=== PATIENT | female | born 1970 | race Caucasian/White ===

== ENCOUNTER 2016-06-25 16:57 | Inpatient (IN) ==
[2016-06-25] MEDS ORDERED: NS 2,400 ML IV ONE (17:42)
[2016-06-25] MEDS ORDERED: ROCEPHIN 1 GM/NS 1 GM/50 ML IVPB IV ONE (17:43)
[2016-06-25 17:53] LABS: BE 7.2 mmoll (-3.0-3.0); BLOOD TYPE ARTERIAL; DRAW SITE R RADIAL; METHB 1.2 % (0.0-1.5); O2(CT) 15.6 mL/dL (15.0-23.0); PO2(98.6) 51 mmHg (60-100); SAMPLE BLOOD; SAO2 90.6 % (95.0-100.0); pH(98.6) 7.42 (7.35-7.45)
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
--- NOTE | 2016-06-25 17:57 | EKG Report ---
Test Performed on : 06/25/2016 5:44:53 PM Test Reason : CP Blood Pressure : / mmHG Vent. Rate : 090 BPM Atrial Rate : 090 BPM P-R Int : 124 ms QRS Dur : 118 ms QT Int : 382 ms P-R-T Axes : 069 108 075 degrees QTc Int : 467 ms Normal sinus rhythm. Rightward axis Incomplete right bundle branch block Nonspecific T wave abnormality Prolonged QT Abnormal ECG When compared with ECG of 30-MAY-2016 09:09, Left anterior fascicular block is no longer present Unconfirmed Result
[2016-06-25 17:59] LABS: BASO% 0.2 % (0.0-0.8); EOS# 0.02 X1000 (0.0-0.7); EOS% 0.2 % (0.0-10.0); HEMATOCRIT 39.6 % (37.0-47.0); IMM GRAN# 0.49 X1000 (0.0-0.04); IMM GRAN% 3.8 % (0.0-0.5); LYMPH% 12.5 % (20.5-51.1); MANUAL DIFF NEEDED? NO; MCH 30.5 PG (27-31); MCHC 32.8 g/dL (33-37); MONO# 0.37 X1000 (0.11-0.59); MONO% 2.9 % (1.7-9.3); MPV 10.3 FL (7.4-10.4); NEUT% 80.4 % (42.2-75.2); PLT 179 X1000 (130-400); RBC 4.26 XMIL (4.2-5.4)
[2016-06-25 18:00] LABS: ALLEN TEST YES; MODALITY CANNULA
[2016-06-25 18:01] LABS: PCO2(98.6) 51 mmHg (35-45)
[2016-06-25 18:22] LABS: ALBUMIN 3.2 g/dL (3.5-5.0); CALCIUM 8.6 mg/dL (8.8-10.2); POTASSIUM 3.2 mmol/L (3.5-5.1); TOTAL BILIRUBIN 0.5 mg/dL (0.20-1.00); TOTAL PROTEIN 6.7 g/dL (6.3-8.3)
[2016-06-25] MEDS ORDERED: ZITHROMAX 500 MG/NS 500 MG/250 ML IVPB IV ONE ×2 (18:41→21:00)
[2016-06-25 18:42] LABS: CK INDEX 1.2 (0.0-2.5); CK-MB 7.63 ng/mL (0.0-5.0)
[2016-06-25] MEDS ORDERED: ZOFRAN IV PRN (18:49)
[2016-06-25] MEDS ORDERED: NS 1,000 ML IV ONE (18:49)
[2016-06-25] MEDS ORDERED: XANAX PO SCH (21:00)
[2016-06-26] MEDS: TYLENOL PO PRN (02:52)
[2016-06-26 06:50] LABS: BASO% 0.1 % (0.0-0.8); EOS# 0.03 X1000 (0.0-0.7); EOS% 0.3 % (0.0-10.0); HEMATOCRIT 33.4 % (37.0-47.0); HEMOGLOBIN 10.5 g/dL (12.0-16.0); IMM GRAN# 0.04 X1000 (0.0-0.04); IMM GRAN% 0.4 % (0.0-0.5); LYMPH# 1.17 X1000 (1.2-3.4); LYMPH% 13.1 % (20.5-51.1); MANUAL DIFF NEEDED? YES; MCHC 31.4 g/dL (33-37); MCV 95.4 FL (81-99); MONO# 0.29 X1000 (0.11-0.59); MONO% 3.2 % (1.7-9.3); MPV 10.5 FL (7.4-10.4); NEUT% 82.9 % (42.2-75.2); PLT 141 X1000 (130-400)
[2016-06-26 07:15] LABS: AGAP 9; BUN 16 mg/dL (8-22); CALCIUM 7.8 mg/dL (8.8-10.2); CHLORIDE 103 mmol/L (98-107); COSMO 276; POTASSIUM 3.6 mmol/L (3.5-5.1); SODIUM 138 mmol/L (136-145); TCO2 27 mmol/L (25-35)
[2016-06-26 07:22] LABS: BANDS 11 % (0-1); LYMPHS 15 % (21-51); MONO 5 % (1-9)
[2016-06-26 07:23] LABS: EOS 1 % (1-10)
[2016-06-26 08:05] LABS: URINE SOURCE CLEAN CATCH
[2016-06-26 08:18] LABS: BILIRUBIN URINE NEGATIVE (NEGATIVE); BLOOD URINE NEGATIVE (NEGATIVE); CLARITY CLEAR (CLEAR); COLOR AMBER; GLUCOSE URINE NEGATIVE (NEGATIVE); LEUKOCYTES URINE 1+ (NEGATIVE); NITRITE URINE NEGATIVE (NEGATIVE); PH URINE 6.5; PROTEIN URINE TRACE mg/dL (NEGATIVE); URINE MICROSCOPIC NEEDED? YES
[2016-06-26 08:19] LABS: URINE EPITHELIAL CELLS >10 /HPF (<10); UROBILINOGEN URINE 4+(12 mg/dL)
--- NOTE | 2016-06-26 08:30 | Diag Imaging Result Document ---
PROCEDURE NAME: ANGIOGRAM/PULMONARY ARTERIES - 06/25/2016 CTA CHEST: COMPARISON: None available. FINDINGS: There is no evidence of pulmonary embolism. There is no evidence of thoracic aortic dissection or aneurysm. There is significant mediastinal and hilar lymphadenopathy. For reference, there is a prominent lymph node in the region of the AP window toward the left that measures up to 2.9 x 1.6 cm axially. There is extensive airspace infiltrate that is seen throughout the left lung and much milder airspace infiltrate in the right upper lobe as well as the right lower lobe at the base. There is probably also a component of atelectasis at both lung bases. There are no pleural fluid collections and no pneumothorax. IMPRESSION: 1. Extensive airspace infiltrate throughout the left lung and much milder patchy infiltrate on the right as described suggesting likely pneumonia. 2. Mediastinal and hilar lymphadenopathy as described. This is probably reactive lymphadenopathy related to the infiltrates. Please correlate clinically. 3. No evidence of pulmonary embolism.
--- NOTE | 2016-06-26 08:53 | Diag Imaging Result Document ---
PROCEDURE NAME: CHEST-2 VIEWS - 06/25/2016 PA AND LATERAL RADIOGRAPH OF THE CHEST: COMPARISON: 05/30/2016. FINDINGS: There is diffuse consolidation throughout the left lung that is worst at the lower lung zone and much milder patchy infiltrate involving the right lower lung zone. This suggests pneumonia. No definite pleural fluid collection is identified. Cardiac silhouette and central vasculature are grossly unremarkable. IMPRESSION: Bilateral infiltrates, much worse on the left.
[2016-06-26] MEDS ORDERED: SOLU-MEDROL IV ONE (09:02)
[2016-06-26] MEDS: XANAX PO SCH ×3 (09:41→20:56)
[2016-06-26] MEDS: METHADONE PO SCH (09:41)
[2016-06-26] MEDS: NS 1,000 ML IV SCH ×2 (09:43→21:23)
[2016-06-26 09:48] LABS: CK INDEX 1.3 (0.0-2.5); CK-MB 3.98 ng/mL (0.0-5.0)
[2016-06-26] MEDS: DUONEB (A & A) INH SCH ×4 (11:14→22:35)
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
[2016-06-26] MEDS: ROCEPHIN 1 GM/NS 1 GM/50 ML IVPB IV SCH (17:27)
[2016-06-26] MEDS: SOLU-MEDROL IV SCH (17:28)
[2016-06-26] MEDS: ZITHROMAX 500 MG/NS 500 MG/250 ML IVPB IV SCH (20:56)
[2016-06-27] MEDS: SOLU-MEDROL IV SCH ×3 (01:50→20:12)
[2016-06-27] MEDS: DUONEB (A & A) INH SCH ×5 (03:10→20:30)
[2016-06-27] MEDS: NS 1,000 ML IV SCH ×2 (04:30→11:07)
[2016-06-27] MEDS: TYLENOL PO PRN (05:00)
[2016-06-27 07:08] LABS: BASO% 0.1 % (0.0-0.8); HEMATOCRIT 33.6 % (37.0-47.0); HEMOGLOBIN 10.8 g/dL (12.0-16.0); IMM GRAN# 0.04 X1000 (0.0-0.04); IMM GRAN% 0.6 % (0.0-0.5); LYMPH# 0.71 X1000 (1.2-3.4); LYMPH% 9.9 % (20.5-51.1); MANUAL DIFF NEEDED? YES; MCH 30.4 PG (27-31); MCHC 32.1 g/dL (33-37); MCV 94.6 FL (81-99); MONO# 0.18 X1000 (0.11-0.59); MONO% 2.5 % (1.7-9.3); MPV 10.2 FL (7.4-10.4); NEUT% 86.9 % (42.2-75.2); PLT 171 X1000 (130-400); RBC 3.55 XMIL (4.2-5.4)
[2016-06-27 07:46] LABS: AGAP 10; BUN 10 mg/dL (8-22); CALCIUM 8.3 mg/dL (8.8-10.2); CHLORIDE 106 mmol/L (98-107); COSMO 282; POTASSIUM 4.1 mmol/L (3.5-5.1); SODIUM 141 mmol/L (136-145); TCO2 26 mmol/L (25-35)
[2016-06-27 08:51] LABS: LYMPHS 7 % (21-51); MONO 4 % (1-9)
[2016-06-27] MEDS: METHADONE PO SCH (09:10)
[2016-06-27] MEDS: XANAX PO SCH ×3 (09:10→20:12)
[2016-06-27] MEDS ORDERED: XOPENEX NEB INH PRN (10:31)
[2016-06-27] MEDS: MUCOMYST 20% INH ONE ×2 (10:50→16:43)
[2016-06-27] MEDS ORDERED: MUCOMYST 20% ONE (11:00)
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
[2016-06-27] MEDS: ROCEPHIN 1 GM/NS 1 GM/50 ML IVPB IV SCH (17:26)
[2016-06-27] MEDS: ZITHROMAX 500 MG/NS 500 MG/250 ML IVPB IV SCH (20:12)
[2016-06-28] MEDS: DUONEB (A & A) INH SCH ×7 (00:09→23:29)
[2016-06-28] MEDS: NS 1,000 ML IV SCH (02:55)
[2016-06-28 08:04] LABS: MANUAL DIFF NEEDED? NO
[2016-06-28 08:35] LABS: BASO% 0.6 % (0.0-0.8); HEMATOCRIT 35.8 % (37.0-47.0); HEMOGLOBIN 11.5 g/dL (12.0-16.0); IMM GRAN# 0.14 X1000 (0.0-0.04); IMM GRAN% 1.7 % (0.0-0.5); LYMPH# 1.16 X1000 (1.2-3.4); LYMPH% 14.1 % (20.5-51.1); MCH 30.6 PG (27-31); MCHC 32.1 g/dL (33-37); MCV 95.2 FL (81-99); MONO# 0.44 X1000 (0.11-0.59); MONO% 5.3 % (1.7-9.3); MPV 9.9 FL (7.4-10.4); NEUT% 78.3 % (42.2-75.2); PLT 191 X1000 (130-400); RBC 3.76 XMIL (4.2-5.4)
[2016-06-28] MEDS: XANAX PO SCH ×3 (08:36→20:12)
[2016-06-28] MEDS: SOLU-MEDROL IV SCH ×2 (08:36→20:12)
[2016-06-28] MEDS: METHADONE PO SCH (08:37)
[2016-06-28 08:50] LABS: AGAP 10; BUN 12 mg/dL (8-22); CALCIUM 8.4 mg/dL (8.8-10.2); CHLORIDE 105 mmol/L (98-107); COSMO 283; POTASSIUM 4.3 mmol/L (3.5-5.1); SODIUM 142 mmol/L (136-145); TCO2 27 mmol/L (25-35)
[2016-06-28 08:51] LABS: CK PROFILE 47 U/L (24-173)
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
[2016-06-28] MEDS: ROCEPHIN 1 GM/NS 1 GM/50 ML IVPB IV SCH (17:07)
[2016-06-28] MEDS: ZITHROMAX 500 MG/NS 500 MG/250 ML IVPB IV SCH (20:12)
[2016-06-29] MEDS: DUONEB (A & A) INH SCH ×3 (04:28→12:10)
[2016-06-29] MEDS: METHADONE PO SCH (08:14)
[2016-06-29] MEDS: XANAX PO SCH (08:14)
[2016-06-29] MEDS: SOLU-MEDROL IV SCH (08:14)
[2016-06-29] MEDS ORDERED: VENTOLIN HFA INH PRN (11:08)
[2016-06-29 11:49] VITALS: BP 162/58
[2016-06-29] MEDS ORDERED: ADVAIR 250/50 DISKUS INH SCH (19:30)
[2016-06-29] MEDS ORDERED: OMNICEF PO SCH (21:00)
--- NOTE | 2016-06-30 04:37 | DISCHARGE SUMMARY ---
ADMISSION DATE: 06/25/2016 DISCHARGE DATE: 06/29/2016 DISPOSITION: Home. FOLLOWUP: 1. Patient's PCP, Dr. Booth. 2. Dr. Ku. ADMISSION DIAGNOSES: 1. Bilateral pneumonia with sepsis. 2. Acute respiratory failure. 3. Elevated D-dimer. 4. Hypertension. 5. Rhabdomyolysis. DISCHARGE DIAGNOSES: 1. Acute mixed respiratory failure due to underlying pneumonia. 2. Bilateral multifocal pneumonia, more extensive on the left than the right. 3. Chronic obstructive pulmonary disease, in exacerbation. 4. Active tobacco use. 5. Rhabdomyolysis, improved. 6. Chronic pain syndrome, on methadone. 7. Multifocal pneumonia, likely due to Klebsiella pneumonia. DISCHARGE MEDICATIONS: 1. Alprazolam 1 mg 3 times per day. 2. Methadone 169 p.o. daily. 3. Gabapentin 300 b.i.d. 4. Symbicort 20 mg at bedtime. 5. Azithromycin 250 mg daily. 6. Cefdinir 300 b.i.d. 7. Albuterol inhaler 2 puffs q.6 hours p.r.n. 8. Advair. 9. Prednisone 20 mg daily. PRESENTING COMPLAINT: Left-sided pain, fever, chills. HISTORY OF PRESENTING COMPLAINT: Ms. Villar is a 45-year-old female, who presented to [place] because of left-sided chest pain, shortness of breath, and fever and chills. A CT scan on presentation did show an extensive air space infiltrate throughout the left lung, much milder patchy infiltrate on the right, suggestive of pneumonia. There was no PE. Patient was admitted initially to the ICU in [place] for medical care. HOSPITAL COURSE: Patient did pretty well, was started on IV antibiotics, steroids, and adequate pulmonary toilet. She improved very rapidly, and was transitioned to the medical floor, where she continued care. The patient did pretty well. Today, she refers to be doing a whole lot better. Vitals have been stable. All of her blood cultures have been negative. However, the sputum culture was consistent with Klebsiella, and we think that is the cause of her pneumonia as well. The patient is therefore going to be discharged on cefdinir. Since she is allergic to ciprofloxacin, I did not want to use quinolone. The patient does not regularly follow up with any rn forensic. She has been advised to follow up with Dr. Ku. We did discuss extensively, for over 20 minutes, about tobacco cessation. At the time of discharge, there are not any pending labs or imaging studies. TIME SPENT: 37 minutes. cc: Nic Frausto MD
--- NOTE | 2016-06-30 07:13 | Extremity Venous Study ---
PROCEDURE NAME: Venous U/S Bilateral Legs - 06/26/2016 BILATERAL VENOUS FLOW EVALUATION: INDICATION: Elevated D dimer. FINDINGS: The deep veins of the lower extremities demonstrate appropriate compressibility and augmentation. No intraluminal thrombus is visualized. There is no evidence for DVT. IMPRESSION: No evidence for deep venous thrombosis bilateral lower extremities.
--- NOTE | 2016-06-30 07:22 | Diag Imaging Result Document ---
PROCEDURE NAME: CHEST-PORTABLE - 06/28/2016 PORTABLE CHEST: COMPARISON: 06/25/2016. FINDINGS: There are infiltrates throughout the left lung. These are more pronounced than on the prior exam. A small left pleural effusion has developed. The right lung remains clear. There are skin diane overlying the upper chest and these are unchanged. IMPRESSION: Interval worsening.
[2016-06-30] MEDS ORDERED: ZITHROMAX PO SCH (09:00)
[2016-06-30] MEDS ORDERED: PREDNISONE PO SCH (09:00)
== END 2016-06-29 13:53 | disposition home or self-care (01) ==
LOC: P.ED 16:57 → P.ICU 19:16 → SUATTDRO 19:16 → P.ICU 23:27 → P.MEDSURG 06-27 15:08
PROVIDERS: ATTEND Internal Medicine

== ENCOUNTER 2019-04-07 15:08 | Observation (INO) ==
[2019-04-07] MEDS ORDERED: ASPIRIN PO ONE (15:16)
--- NOTE | 2019-04-07 15:31 | EKG Report ---
Test Performed on : 04/07/2019 3:18:26 PM Test Reason : Blood Pressure : / mmHG Vent. Rate : 076 BPM Atrial Rate : 076 BPM P-R Int : 146 ms QRS Dur : 092 ms QT Int : 408 ms P-R-T Axes : 061 095 043 degrees QTc Int : 459 ms Normal sinus rhythm. Rightward axis Borderline ECG When compared with ECG of 16-MAR-2019 13:09, (Unconfirmed) premature ventricular complexes. are no longer present Unconfirmed Result
[2019-04-07] MEDS ORDERED: NS 500 ML IV ONE (15:38)
[2019-04-07] MEDS ORDERED: NITROGLYCERIN SL ONE (15:38)
[2019-04-07 15:50] LABS: BASO# 0.03 X1000 (0.0-0.2); BASO% 0.6 % (0.0-0.8); EOS# 0.04 X1000 (0.0-0.7); EOS% 0.7 % (0.0-10.0); HEMATOCRIT 45.1 % (37.0-47.0); IMM GRAN# 0.01 X1000 (0.0-0.04); IMM GRAN% 0.2 % (0.0-0.5); LYMPH# 2.51 X1000 (1.2-3.4); LYMPH% 46.1 % (20.5-51.1); MCH 31.3 PG (27-31); MCHC 33.3 g/dL (33-37); MONO# 0.39 X1000 (0.11-0.59); MONO% 7.2 % (1.7-9.3); MPV 10.1 FL (7.4-10.4); NEUT# 2.47 X1000 (1.4-6.5); NEUT% 45.2 % (42.2-75.2); PLT 242 X1000 (130-400); RDW 13.6 % (11.5-14.5); WBC 5.45 X1000 (4.8-10.8)
--- NOTE | 2019-04-07 16:00 | Diag Imaging Result Doc PS360 ---
EXAM: CHEST-2 VIEWS HISTORY: short of breath TECHNIQUE: Two views COMPARISON: 03/16/2019 FINDINGS: The lungs are well expanded. The heart is not enlarged. The vessels are not distended. There are no infiltrates. No pleural effusions. IMPRESSION: No acute abnormality. Electronically signed by Vladimir Araya 04/07/2019 3:58 PM
[2019-04-07 16:10] LABS: AGAP 13; ALBUMIN 4.9 g/dL (3.5-5.0); ALKALINE PHOSPHATASE 61 U/L (32-104); BUN 12 mg/dL (8-22); CALCIUM 9.8 mg/dL (8.8-10.2); CHLORIDE 100 mmol/L (98-107); COSMO 274; CREATININE 0.9 mg/dL (0.5-0.9); ESTIMATED GFR > 60; GLUCOSE 71 mg/dL (70-104); GOT 19 U/L (10-30); GPT 20 U/L (10-36); POTASSIUM 4.1 mmol/L (3.5-5.1); SODIUM 138 mmol/L (136-145); TCO2 25 mmol/L (25-35); TOTAL PROTEIN 7.7 g/dL (6.3-8.3)
[2019-04-07 16:22] LABS: INR 0.91; PROTIME 12.7 Seconds (11.0-16.0)
[2019-04-07 16:23] LABS: PTT 36.5 Seconds (22.3-41.8)
[2019-04-07] MEDS ORDERED: PROTONIX IV ONE (16:37)
[2019-04-07] MEDS ORDERED: LOVENOX 1 MG/KG SUBQ ONE (16:37)
[2019-04-07] MEDS ORDERED: PEPCID IV ONE (16:37)
[2019-04-07] MEDS ORDERED: SODIUM CHLORIDE 0.9% INJ ONE ×2 (16:37)
[2019-04-07] MEDS ORDERED: LOVENOX ONE (17:10)
[2019-04-07] MEDS ORDERED: G.I. COCKTAIL PO ONE (17:27)
[2019-04-07] MEDS ORDERED: MORPHINE IV ONE (18:46)
[2019-04-07] MEDS ORDERED: ZOFRAN IV ONE (18:46)
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
[2019-04-07] MEDS ORDERED: DUONEB (A & A) INH ONE (20:18)
--- NOTE | 2019-04-07 20:32 | Diag Imaging Result Doc PS360 ---
CT ANGIOGRM PULMONARY ARTERIES - 04/07/2019 INDICATION: difficulty breathing, left arm swollen TECHNIQUE: Axial CT images were obtained after administering intravenous contrast. Coronal MIP images were generated. COMPARISON: 06/25/2016 FINDINGS: There is no pulmonary embolism. Heart and great vessels are normal. No adenopathy. There is some dependent atelectasis in the lungs bilaterally. No infiltrates. Airways are clear. Upper abdominal images are unremarkable. Bones are intact. IMPRESSION: No acute disease. This exam was performed using automated exposure control, adjustment of mA or kV according to patient size, and/or use of iterative reconstruction technique Electronically signed by Chris Peacock 04/07/2019 8:29 PM
[2019-04-07] MEDS ORDERED: SOLU-MEDROL IV ONE (20:41)
[2019-04-07] MEDS ORDERED: ZOFRAN IV PRN (20:43)
[2019-04-07 21:04] LABS: BE -0.5 mmoll (-3.0-3.0); BLOOD TYPE ARTERIAL; HCO3-(ACT) 24.3 mmoll (20.0-26.0); METHB 1.3 % (0.0-1.5); O2(CT) 18.7 mL/dL (15.0-23.0); PCO2(98.6) 48 mmHg (35-45); PO2(98.6) 62 mmHg (60-100); SAMPLE BLOOD; SAO2 92.6 % (95.0-100.0); pH(98.6) 7.34 (7.35-7.45)
[2019-04-07 21:06] LABS: ALLEN TEST NO; MODALITY ROOM AIR; O2HB 88.8 % (95.0-99.0)
--- NOTE | 2019-04-07 22:14 | EKG Report ---
Test Performed on : 04/07/2019 5:17:22 PM Test Reason : CP Blood Pressure : / mmHG Vent. Rate : 069 BPM Atrial Rate : 069 BPM P-R Int : 166 ms QRS Dur : 108 ms QT Int : 430 ms P-R-T Axes : 063 097 053 degrees QTc Int : 460 ms Normal sinus rhythm. Rightward axis Borderline ECG When compared with ECG of 07-APR-2019 15:18, (Unconfirmed) No significant change was found Unconfirmed Result
[2019-04-07 23:01] VITALS: BP 120/71
[2019-04-07] MEDS: DUONEB (A & A) INH SCH (23:04)
[2019-04-08] MEDS: DUONEB (A & A) INH SCH ×3 (02:58→10:43)
[2019-04-08 03:02] LABS: BASO# 0.01 X1000 (0.0-0.2); BASO% 0.2 % (0.0-0.8); HEMATOCRIT 42.6 % (37.0-47.0); HEMOGLOBIN 13.8 g/dL (12.0-16.0); IMM GRAN# 0.01 X1000 (0.0-0.04); IMM GRAN% 0.2 % (0.0-0.5); LYMPH# 1.08 X1000 (1.2-3.4); LYMPH% 19.5 % (20.5-51.1); MCH 31.2 PG (27-31); MCHC 32.4 g/dL (33-37); MCV 96.2 FL (81-99); MONO% 1.8 % (1.7-9.3); NEUT# 4.34 X1000 (1.4-6.5); NEUT% 78.3 % (42.2-75.2); PLT 218 X1000 (130-400); RBC 4.43 XMIL (4.2-5.4); RDW 13.6 % (11.5-14.5); WBC 5.54 X1000 (4.8-10.8)
[2019-04-08 03:28] LABS: AGAP 15; ALBUMIN 4.5 g/dL (3.5-5.0); ALKALINE PHOSPHATASE 55 U/L (32-104); BUN 15 mg/dL (8-22); CALCIUM 9.5 mg/dL (8.8-10.2); CHLORIDE 101 mmol/L (98-107); COSMO 281; CREATININE 0.9 mg/dL (0.5-0.9); ESTIMATED GFR > 60; GLUCOSE 142 mg/dL (70-104); GOT 16 U/L (10-30); GPT 18 U/L (10-36); POTASSIUM 4.1 mmol/L (3.5-5.1); SODIUM 139 mmol/L (136-145); TCO2 24 mmol/L (25-35); TOTAL BILIRUBIN < 0.15 mg/dL (0.20-1.00)
[2019-04-08] MEDS ORDERED: METHADONE PO SCH (09:00)
[2019-04-08] MEDS ORDERED: XANAX PO SCH (09:00)
[2019-04-08] MEDS ORDERED: NORVASC PO SCH (09:00)
[2019-04-08] MEDS ORDERED: CATAPRES PO SCH (09:00)
--- NOTE | 2019-04-09 03:38 | HISTORY AND PHYSICAL ---
CHIEF COMPLAINT: Chest pain. HISTORY OF PRESENT ILLNESS: The patient is a 48-year-old female who presented to the emergency department with chest pain, shortness of breath. Stated she is dizzy, sweaty at times. States she has a history of blockage, although she has recently seen Dr. Loera. She did have a heart catheterization that was clear. ALLERGIES: Stadol, Cipro, Toradol causing hives, Levaquin, Nubain, naloxone, Dilantin and tramadol. MEDICATIONS: Xanax 2 mg b.i.d., methadone 170 mg q.a.m., amlodipine 10 and clonidine 0.1 daily. REVIEW OF SYSTEMS: The patient denies any current cough, congestion. Denies wheezing. Does states she is short of breath. Denies any palpitations or syncope. Denies headaches, blurred vision, change in vision. Denies nausea, vomiting, diarrhea. Denies dysuria, urinary frequency, or urgency. Denies polyuria or polydipsia. PAST MEDICAL HISTORY: Significant for COPD, cervical cancer, history of seizures, chronic anxiety, chronic pain. SURGICAL HISTORY: History of hysterectomy, and elbow surgery x3 with skin grafting. FAMILY HISTORY: Noncontributory. SOCIAL HISTORY: Patient smokes less than a pack a day. Denies alcohol or illicit substances. PHYSICAL EXAMINATION: VITAL SIGNS: Reviewed. She is currently afebrile, O2 saturation 96% on room air, blood pressure stable. GENERAL: Patient is awake, alert. She is in no current respiratory distress. HEENT: Normocephalic. NECK: Supple. CARDIOVASCULAR: Regular rate. CHEST: Clear and nonlabored. No wheezing. ABDOMEN: Soft, nondistended. EXTREMITIES: Moves all extremities. NEUROLOGIC: No changes. ASSESSMENT: 1. Hypoxia. She had one O2 saturation in the ER that was low at 86%. 2. Chest pain although she has normal coronaries recently. 3. Chronic pain. 4. Chronic anxiety. 5. Chronic obstructive pulmonary disease. 6. Others. PLAN: Given that she had 1 low O2 saturation, ER wanted to watch her overnight so we are going to admit her and we will continue to follow. We will continue her home medications although again discussed with her the perils of high-dose benzodiazepines, high-dose methadone and smoking as all 3 of those can cause respiratory suppression and ultimately . cc: Devaughn North MD
--- NOTE | 2019-04-09 04:45 | DISCHARGE SUMMARY ---
ADMISSION DATE: 04/07/2019 DISCHARGE DATE: 04/08/2019 DISCHARGE DIAGNOSIS: 1. Hypoxia on 1 single reading although I expect this was an abnormality of breathing, not an actual abnormality of being hypoxic as all of her other labs have been normal as well as her O2 saturation checks. 2. Chronic anxiety. 3. Chronic pain. 4. Chronic tobacco abuse. 5. Chronic obstructive pulmonary disease. CONSULTATION: None. PROCEDURES: None. BRIEF HOSPITAL COURSE: The patient is a 48-year-old female who presented to the hospital, treated in usual fashion, watched overnight for hypoxia. Thankfully, it did not recur. Her O2 saturations have been fine since. We will discharge her home. cc: Devaughn North MD
== END 2019-04-08 14:10 | disposition home or self-care (01) ==
LOC: P.ED 15:08 → P.MEDSURG 15:08
PROVIDERS: ADMIT Family Medicine; ATTEND Family Medicine